=== PATIENT | male | born 1990 | race Caucasian/White ===

== ENCOUNTER 2017-04-20 12:10 | Emergency (ER) | payer OTHER ==
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
[2017-04-20 13:50] LABS: ACETAMINOPHEN < 3.0 ug/mL; CHLORIDE,CL 109 mmol/L (98-110); SODIUM,NA 144 mmol/L (136-146)
[2017-04-20] MEDS ORDERED: LORazepam 2 MG/ML MDV IVPUSH ONE (14:05)
[2017-04-20] MEDS ORDERED: LORazepam 1 MG Tab PO ONE (14:13)
[2017-04-20] MEDS ORDERED: Acetaminophen 500 MG Tab PO ONE (14:33)
[2017-04-20 14:53] VITALS: BP 158/102
== END 2017-04-20 14:44 ==
LOC: MW.ED 12:10
DX: R45.851 Suicidal ideations (principal); F32.9 Major depressive disorder, single episode, unspecified; F41.9 Anxiety disorder, unspecified; Z79.899 Other long term (current) drug therapy
CPT/HCPCS: 36415; 80053; 80305; 81001; 83735; 84443; 84481; 85025; 93005; 99285; A9270; G0480; 99283